=== PATIENT | male | born 1940 | race Caucasian/White ===

== ENCOUNTER 2017-12-28 13:48 | Emergency (ER) | payer MEDICARE ==
[~2017-12-28] VITALS: Ht 172.7 cm; Wt 109.0 kg
[~2017-12-28 13:48] MED LIST: ALTACE10 M1 PO; AUGMENTIN875TAB OR; BETAPACE AF80 MG OR; CARTIA XT240 MG/24 PO; FLEXERIL10 MG OR; HYDROCHLOROT25 MG PO; LANOXIN0.25 MG PO; LORTAB5 OR; MEDDOSEPAK PO; METFORMIN500 M1 PO; METFORMIN500 M2 PO; ROBITUSSIN AC10 ML PO; SERTRALINE50 MG PO; SIMVASTATIN20 MG PO; SOTALOL HCL80 MG PO; TERAZOSIN10 MG PO; TESSALON PER100 MG PO; WARFARIN5 MG PO; ZITHROMAX250 MG PO
[2017-12-28 14:23] LABS: IMMATURE GRANULOCYTES 1.1 % (0.0-1.0); MEAN CELL VOLUME 95.4 fL CALC (80.0-100.0); MEAN CORPUSCULAR HGB CONC 34.5 g/L CALC (32.0-36.0); NEUT# 12.53 thou/uL (1.82-7.42); RED BLOOD COUNT 5.49 mill/uL (4.70-6.10); RED CELL DISTRI WIDTH 12.8 % (11.5-15.5)
[2017-12-28 14:30] LABS: HEMATOCRIT 52.4 % (39.0-50.0); HEMOGLOBIN 18.1 g/dl (14.0-18.0)
[2017-12-28 14:41] LABS: ALBUMIN 4.1 g/dL (3.2-5.0); ALKALINE PHOSPHATASE 77 u/l (38-126); ANION GAP 21 (6-22 (CALC)); BILIRUBIN, TOTAL 0.6 mg/dL (0.0-1.4); BUN 38 mg/dL (8-23); BUN/CREATININE RATIO 23 (12-20 (CALC)); CARBON DIOXIDE 28 mmol/l (22-30); CHLORIDE 100 mmol/l (95-108); CREATININE 1.6 mg/dL (0.7-1.3); GFR 42 ML/MIN (>=60 (CALC)); GFR FOR AFR.AMER. 51 ML/MIN (>=60 (CALC)); LIPASE 130 u/l (23-300); POTASSIUM 4.3 mmol/l (3.5-5.1); SGOT/AST 20 u/l (19-48); SGPT/ALT 37 u/l (11-66); SODIUM 145 mmol/l (137-146); TOTAL PROTEIN 7.1 g/dL (6.3-8.2)
[2017-12-28 16:10] LABS: INFLUENZA A POSITIVE (NONE DETECT); INFLUENZA B POSITIVE (NONE DETECT)
[2017-12-28] MEDS ORDERED: ZPAK PO (16:12)
[2017-12-28] MEDS ORDERED: ONDANSETRON4 MG PO (16:12)
[2017-12-28] MEDS ORDERED: PREDNISONE50 MG PO (16:12)
[2017-12-28] MEDS ORDERED: TAM75CAP PO (16:23)
[2017-12-28 17:30] VITALS: BP 172/78
== END 2017-12-28 17:30 | disposition left against medical advice (07) ==
LOC: ED 13:48
PROVIDERS: Family Medicine
DX: J44.1 Chronic obstructive pulmonary disease with (acute) exacerbation (principal); F17.200 Nicotine dependence, unspecified, uncomplicated; R09.02 Hypoxemia; R07.9 Chest pain, unspecified; J10.1 Influenza due to other identified influenza virus with other respiratory manifestations; R06.02 Shortness of breath; Z91.19 Patient's noncompliance with other medical treatment and regimen

== ENCOUNTER 2020-12-17 08:30 | Emergency (ER) | payer MEDICARE ==
[~2020-12-17] VITALS: Ht 172.7 cm; Wt 115.0 kg
[~2020-12-17 08:30] MED LIST changes: +ONDANSETRON4 MG PO; +PREDNISONE50 MG PO; +TAM75CAP PO; +ZPAK PO
[2020-12-17 09:45] LABS: HEMATOCRIT 46.1 % (39.0-50.0); HEMOGLOBIN 14.9 g/dl (14.0-18.0); IMMATURE GRANULOCYTES 0.5 % (0.0-5.0); MEAN CELL VOLUME 100.7 fL CALC (80.0-100.0); MEAN CORPUSCULAR HGB 32.5 pG CALC (26.0-32.0); MEAN CORPUSCULAR HGB CONC 32.3 g/dL CAL (32.0-36.0); NEUT# 6.09 thou/uL (1.82-7.42); RED BLOOD COUNT 4.58 mill/uL (4.70-6.10); RED CELL DISTRI WIDTH 13.4 % (11.5-15.5)
[2020-12-17 10:03] LABS: ALBUMIN 3.5 g/dL (3.2-5.0); CREATININE 2.5 mg/dL (0.7-1.3); LIPASE 70 u/l (23-300); POTASSIUM 3.4 mmol/l (3.5-5.1); TOTAL PROTEIN 6.4 g/dL (6.3-8.2)
[2020-12-17 10:43] LABS: URINE BILIRUBIN - DIPSTICK NEGATIVE (NEGATIVE); URINE BLOOD DIPSTICK NEGATIVE (NEGATIVE); URINE COLOR YELLOW; URINE GLUCOSE - DIPSTICK NEGATIVE (NEGATIVE); URINE KETONE NEGATIVE (NEGATIVE); URINE LEUK ESTERASE NEGATIVE (NEGATIVE); URINE PH 5.5 (4.5-8.0); URINE PROTEIN - DIPSTICK >=300 mg/dL (NEG-TRACE); URINE SPECIFIC GRAVITY >=1.030; URINE UROBILINOGEN - DIPSTICK 0.2 E.U./dL (0.2)
[2020-12-17 10:45] LABS: URINE NITRITE - DIPSTICK NEGATIVE (Negative)
[2020-12-17 10:57] LABS: URINE RBC 0-2 RBC/hpf (0-5); URINE WBC 0-2 WBC/hpf (0-5)
[2020-12-17] MEDS ORDERED: ZOFRAN4 M1 PO (10:59)
[2020-12-17 11:39] VITALS: BP 114/74
== END 2020-12-17 11:31 | disposition left against medical advice (07) ==
LOC: ED 08:30
PROVIDERS: Family Medicine
DX: K56.609 Unspecified intestinal obstruction, unspecified as to partial versus complete obstruction (principal); E11.9 Type 2 diabetes mellitus without complications; I10 Essential (primary) hypertension; F17.290 Nicotine dependence, other tobacco product, uncomplicated; Z86.718 Personal history of other venous thrombosis and embolism; Z79.84 Long term (current) use of oral hypoglycemic drugs; Z91.19 Patient's noncompliance with other medical treatment and regimen; Z20.822 Contact with and (suspected) exposure to COVID-19

== ENCOUNTER 2020-12-21 | Emergency (ER) | payer MEDICARE ==
[~2020-12-21] MED LIST changes: +ZOFRAN4 M1 PO
[2020-12-21 13:15] LABS: IMMATURE GRANULOCYTES 2.5 % (0.0-5.0); MEAN CELL VOLUME 99.5 fL CALC (80.0-100.0); MEAN CORPUSCULAR HGB 32.6 pG CALC (26.0-32.0); MEAN CORPUSCULAR HGB CONC 32.7 g/dL CAL (32.0-36.0); NEUT# 7.84 thou/uL (1.82-7.42); RED BLOOD COUNT 3.87 mill/uL (4.70-6.10); RED CELL DISTRI WIDTH 13.2 % (11.5-15.5)
[2020-12-21 13:22] LABS: HEMATOCRIT 38.5 % (39.0-50.0); HEMOGLOBIN 12.6 g/dl (14.0-18.0)
[2020-12-21 13:44] LABS: ALBUMIN 2.8 g/dL (3.2-5.0); BILIRUBIN, TOTAL 0.7 mg/dL (0.0-1.4); POTASSIUM 3.8 mmol/l (3.5-5.1)
[2020-12-21 13:47] LABS: CREATININE 3.9 mg/dL (0.7-1.3); TOTAL PROTEIN 5.1 g/dL (6.3-8.2)
== END 2020-12-21 18:00 | disposition short-term general hospital (02) ==
PROVIDERS: Family Medicine
PROC: 06HY33Z Insertion of Infusion Device into Lower Vein, Percutaneous Approach (ICD-10-PCS; principal; 2020-12-21)
DX: K56.609 Unspecified intestinal obstruction, unspecified as to partial versus complete obstruction (principal); J18.9 Pneumonia, unspecified organism; N17.9 Acute kidney failure, unspecified; E87.2 Acidosis; I95.9 Hypotension, unspecified; I12.9 Hypertensive chronic kidney disease with stage 1 through stage 4 chronic kidney disease, or unspecified chronic kidney disease; E11.22 Type 2 diabetes mellitus with diabetic chronic kidney disease; N18.9 Chronic kidney disease, unspecified; I25.10 Atherosclerotic heart disease of native coronary artery without angina pectoris; F17.200 Nicotine dependence, unspecified, uncomplicated; Z86.718 Personal history of other venous thrombosis and embolism; Z79.84 Long term (current) use of oral hypoglycemic drugs; Z20.822 Contact with and (suspected) exposure to COVID-19